=== PATIENT | female | born 1940 | race Two or more races ===

== ENCOUNTER 2018-12-07 12:48 | Emergency (ER) | payer MEDICARE, MEDICAID ==
[~2018-12-07] VITALS: Ht 162.6 cm; Wt 68.0 kg
[~2018-12-07 12:48] MED LIST: BENAZEPRIL HCL10 MG ORAL; VALIUM5 MG PO
--- NOTE | 2018-12-07 13:00 | NUR ---
ED Nurse Note: pt walked in to ED with family member due to bruised on left calf area for 3 days. pt denies any injury. multiple varicose veins noted. pulse palpable. AAO x4. respirations even and non-labored noted. bp high at triage. per pt, did not take meds due to coughing. instructed to follow up with PCP.
[2018-12-07] MEDS ORDERED: LIDOCAINE700 M1 TP (14:27)
[2018-12-07 14:32] VITALS: BP 163/71
--- NOTE | 2018-12-07 14:33 | NUR ---
ER DISCHARGE NOTE: Patient is cleared to be discharged per ERMD, pt is aox4, on room air, with stable vital signs. pt was given dc and prescription instructions, pt was able to verbalize understanding, pt id band removed. pt is able to ambulate with steady gait. pt took all belongings.
--- NOTE | 2018-12-07 21:29 | Emergency Room Report ---
History of Present Illness General Chief Complaint: Lower Extremity Injury Source: Medical Record Present Illness HPI Patient is a 78-year-old female presented after noticing some swelling and discomfort to her calf. Patient denies any definite trauma. She had prior history of varicose veins. She denies any fever or increased leg discomfort. Allergies: Coded Allergies: No Known Allergies (Unverified , 10/18/12) Patient History Past Medical History: see triage record Reviewed Nursing Documentation: PMH: Agreed; PSxH: Agreed Nursing Documentation-PMH Past Medical History: No History, Except For Hx Hypertension: Yes Review of Systems All Other Systems: negative except mentioned in HPI Physical Exam Vital Signs Date Time Temp Pulse Resp B/P (MAP) Pulse Ox O2 Delivery O2 Flow Rate FiO2 12/07/18 12:57 98.1 66 16 183/90 (121) 97 Room Air General Appearance: well appearing, no apparent distress, alert, GCS 15 Head: normocephalic, atraumatic ENT: hearing grossly normal, normal voice Neck: full range of motion, supple Respiratory: no respiratory distress, speaking full sentences Musculoskeletal: no calf tenderness Neurologic: normal gait Psychiatric: mood/affect normal Skin: no rash Medical Decision Making Diagnostic Impression: Primary Impression: Strain of calf muscle ER Course Patient presented for calf pain. Differential diagnosis include was not limited to contusion, deep venous thrombosis, muscle strain among others. Patient noted to have some superficial varicosities to her calf. These do not appear to be inflamed or infected. There is noted to be some bruising to the posterior calf consistent with a recent traumatic injury. Patient did not have any after active bleeding. Patient appears to be stable for outpatient management she is given prescription for medications for discomfort. She is advised to follow-up with her primary care physician for recheck. Last Vital Signs Date Time Temp Pulse Resp B/P (MAP) Pulse Ox O2 Delivery O2 Flow Rate FiO2 12/07/18 14:32 98.0 87 18 163/71 99 Room Air Status: improved Disposition: HOME, SELF-CARE Condition: Stable Scripts Lidocaine (Lidocaine) 1 Each Adh..patch 5 % TP DAILY, #30 PATCH Prov: Antonio Rincon MD 12/07/18 Referrals: NON PHYSICIAN (PCP) Patient Instructions: Muscle Strain, [id number] Antonio Rincon MD December 07, 2018 21:29
== END 2018-12-07 14:34 | disposition home or self-care (01) ==
LOC: EMR 14:20
DX: S86.112A Strain of other muscle(s) and tendon(s) of posterior muscle group at lower leg level, left leg, initial encounter (principal); I10 Essential (primary) hypertension; X58.XXXA Exposure to other specified factors, initial encounter; Y92.9 Unspecified place or not applicable
CPT/HCPCS: 99282

== ENCOUNTER 2019-12-10 12:02 | Emergency (ER) | payer MEDICARE, MEDICAID ==
[~2019-12-10] VITALS: Ht 157.5 cm; Wt 77.1 kg
[~2019-12-10 12:02] MED LIST changes: +LIDOCAINE700 M1 TP
--- NOTE | 2019-12-10 12:44 | Emergency Room Report ---
History of Present Illness General Chief Complaint: General Complaint Source: Patient Present Illness HPI Disclaimer: Please note that this report is being documented using [employer] technology. This can lead to erroneous entry secondary to incorrect interpretation by the dictating instrument. HPI: 79-year-old female presents for evaluation of right shoulder pain. States over the past 2 weeks she has had difficulty raising her arm past 90 degrees and has pain when pushing objects away from her. She noted some bruising after massaging her shoulder over the past week. Denies any trauma, fall, injury, significant strain or prior injury. Denies numbness or tingling. Still has full use of the right upper extremity. Denies anticoagulant use. Takes aspirin as needed for pain. PMH: Hypertension PSH: Reviewed Allergies: Denied Social Hx: Denied Allergies: Coded Allergies: No Known Allergies (Unverified , 10/18/12) COVID-19 Screening Contact w/high risk pt: No Recent Travel to affected area: No Experienced COVID-19 symptoms?: No COVID-19 Testing performed HAND STRIPER: No Patient History Last Menstrual Period: na Now: No Nursing Documentation-PMH Past Medical History: No History, Except For Hx Hypertension: Yes Review of Systems All Other Systems: negative except mentioned in HPI Physical Exam Vital Signs Date Time Temp Pulse Resp B/P (MAP) Pulse Ox O2 Delivery O2 Flow Rate FiO2 12/10/19 12:07 97.9 92 17 159/92 (114) 98 Room Air General: Awake and alert, no acute distress HEENT: NC/AT. EOMI. Resp: Normal work of breathing Skin: Extensive bruising over the right biceps and the right arm. No significant edema. Mildly tender. MSK: Normal tone and bulk. Moving all extremities. Full range of motion of the right upper extremity able to abduct past 90 degrees. Full internal/external rotation. Able to pronate, supinate, flex and extend Neuro: Awake and alert. Mentating appropriately Medical Decision Making Diagnostic Impression: Primary Impression: Shoulder pain ER Course This is an 79-year-old female presenting for 2 weeks right shoulder pain and bruising over the right biceps without reported trauma. Patient takes aspirin intermittently but otherwise no anticoagulants. She does state that she bruises very easily and has been massaging her arm a lot over the past 2 weeks given her recent shoulder pain. Possible osteoporosis, osteoarthritis, impingement, occult fracture, dislocation, muscular injury, ligamentous injury, tendinous injury. Patient is not in any discomfort at this time and does not show signs of infection. An x-ray is obtained does not show any acute fracture or dislocation. Will refer to orthopedic surgery and her PMD. Placed in sling for comfort. We will continue with Tylenol. Advised her to return to the emergency room with any new or worsening symptoms. Other X-Ray Diagnostic Results Other X-Ray Diagnostic Results : X-Ray ordered: Right shoulder # of Views/Limited Vs Complete: Complete Indication: Pain EP Interpretation: Yes Interpretation: no dislocation, no soft tissue swelling, no fractures Impression: No acute disease Electronically Signed by: Electronically signed by Dr. Gelacio Menendez Last Vital Signs Date Time Temp Pulse Resp B/P (MAP) Pulse Ox O2 Delivery O2 Flow Rate FiO2 12/10/19 12:07 97.9 92 17 159/92 (114) 98 Room Air Disposition: HOME, SELF-CARE Condition: Stable Referrals: Lico Guzmán MD (PCP) Gelacio Menendez MD December 10, 2019 12:44
[2019-12-10] MEDS ORDERED: TYLENOL325 MG ORAL (14:02)
--- NOTE | 2019-12-10 14:43 | Diagnostic Imaging Report ---
EXAM: XR Right Shoulder Complete, 2 or More Views CLINICAL HISTORY: INJ TECHNIQUE: Two or more views of the right shoulder. COMPARISON: None FINDINGS: Bones/joints: No displaced fracture or dislocation identified. Osteopenia. Degenerative changes of the right acromioclavicular joint. Soft tissues: Normal. IMPRESSION: No displaced fracture or dislocation identified.
[2019-12-10 17:59] VITALS: BP 110/78
== END 2019-12-10 14:16 | disposition home or self-care (01) ==
LOC: EMR 12:24
DX: M25.511 Pain in right shoulder (principal); I10 Essential (primary) hypertension
CPT/HCPCS: 99283